=== PATIENT | male | born 1995 | race Caucasian/White ===

== ENCOUNTER 2023-09-29 04:40 | Emergency (ER) | payer MEDICAID ==
[~2023-09-29] VITALS: Ht 175.3 cm; Wt 81.6 kg
[2023-09-29 04:40] VITALS: PULSE 120; RESP 19; TEMP 98; O2SAT 97
[2023-09-29 06:53] VITALS: PULSE 106; RESP 16; O2SAT 98
[2023-09-29 07:07] VITALS: BP 136/93
== END 2023-09-29 07:07 | disposition home or self-care (01) ==
LOC: MED 04:40
DX: S62.524A Nondisplaced fracture of distal phalanx of right thumb, initial encounter for closed fracture (principal); S50.01XA Contusion of right elbow, initial encounter; S00.01XA Abrasion of scalp, initial encounter; S80.211A Abrasion, right knee, initial encounter; V49.9XXA Car occupant (driver) (passenger) injured in unspecified traffic accident, initial encounter; Y93.89 Activity, other specified; Y92.410 Unspecified street and highway as the place of occurrence of the external cause; Y99.8 Other external cause status
CPT/HCPCS: 70450; 73080; 73130; 90471; 90715; 99285